=== PATIENT | female | born 1990 | race Caucasian/White ===

== ENCOUNTER → 2018-02-12 | Outpatient (CLI) | payer BC ==
--- NOTE | 2018-02-12 15:59 | RADIOLOGY IMAGING REPORT ---
FACILITY: [facility] - [place] PATIENT NAME: Dusty White : 1990 MR: [id number] V: [id number] EXAM DATE: [id number] ORDERING PHYSICIAN: ADAM LUONG TECHNOLOGIST: Location: [facility] [place] Patient: Dusty White : 1990 Visit/Account:[id number] Date of Sevice: 02/12/2018 ABDOMEN/PELVIS W/O CONTRAST HISTORY: Right flank pain TECHNIQUE: Axial images acquired through the abdomen/pelvis. Coronal and sagittal reformatting also performed. No IV contrast administered.Dose Lowering Technique One of the following dose optimization techniques was utilized in the performance of this exam: Autom ated exposure control; adjustment of the mA and/or kV according to the patient's size; or use of an i terative reconstruction technique. Specific details can be referenced in the facility's radiology C T exam operational policy. COMPARISON: CTA chest May 15, 2016 FINDINGS: Visualized lung bases: Negative. Hepatobiliary: Negative. Spleen: Negative. Adrenals: Negative. Pancreas: Negative. Kidneys ureters and bladder: Negative. Genitalia: Vaginal tampon in place. There is heterogeneous hypoattenuating process low within the p isaiah posterior to the uterus and anterior to the rectum and distal sigmoid colon. Due to paucity of internal fat planes and lack of contrast it Is unclear as to the etiology of this finding. This cou ld represent matted loops of small bowel or a complex fluid collection GI: There is a very redundant colon with moderate amount fecal material seen throughout which can se en with constipation. An appendix is not definitively seen Vessels/spaces/nodes: Negative. Bones/soft tissues: Negative. Additional findings: None pertinent. IMPRESSION: There is a very redundant colon with a moderate amount of fecal material seen throughout which can be seen with constipation Appendix is not definitively seen There is a heterogeneous hypoattenuating process low within the pelvis posterior to the uterus and an terior to the rectum and sigmoid colon. Due to the paucity of internal fat planes and lack of contra st, it is unclear as to etiology of this finding. This could represent matted loops of small bowel o r complex fluid collection. Further evaluation with pelvic ultrasound may be helpful depending upon the clinical findings Results were called to ADAM LUONG at 02/12/2018 3:50 PM. Report Dictated By: Mariel Guerrero MD at 02/12/2018 3:35 PM Report E-Signed By: Mariel Guerrero MD at 02/12/2018 3:54 PM WSN:NAEL
== END ==
LOC: CT 14:52
PROVIDERS: ATTEND Family Medicine
DX: K59.00 Constipation, unspecified (principal); R93.5 Abnormal findings on diagnostic imaging of other abdominal regions, including retroperitoneum
CPT/HCPCS: 74176

== ENCOUNTER → 2018-02-13 | Outpatient (CLI) | payer BC ==
--- NOTE | 2018-02-13 11:39 | RADIOLOGY IMAGING REPORT ---
FACILITY: [facility] - [place] PATIENT NAME: Dusty White : 1990 MR: [id number] V: [id number] EXAM DATE: ORDERING PHYSICIAN: ADAM LUONG TECHNOLOGIST: Location: [facility] Patient: Dusty White : 1990 Visit/Account:[id number] Date of Sevice: 02/13/2018 EXAMINATION: Abdominal ultrasound complete HISTORY: Right flank pain COMPARISON: CT abdomen pelvis February 12, 2018 FINDINGS: Gallbladder: No stones, wall thickening, pericholecystic fluid or sonographic Brown sign. Liver: Negative. Common duct: Normal measuring 2.3 mm. Pancreas: Obscured by bowel gas Spleen: Normal in size and echogenicity measuring 11 cm in length. Kidneys: Normal in size and echogenicity, the right measures 10.7 cm in length, and the left 10.4 cm . No hydronephrosis. Upper abdominal aorta and IVC: Negative. Ascites: None. IMPRESSION: Pancreas not well seen due to overlying bowel gas otherwise unremarkable abdomen ultrasound Report Dictated By: Mariel Guerrero MD at 02/13/2018 11:31 AM Report E-Signed By: Mariel Guerrero MD at 02/13/2018 11:34 AM GIBRANN:NAEL
== END ==
LOC: US 07:29
PROVIDERS: ATTEND Family Medicine
DX: N10 Acute pyelonephritis (principal)
CPT/HCPCS: 76700